=== PATIENT | male | born 1985 | race Caucasian/White ===

== ENCOUNTER 2016-06-27 05:08 | Emergency (ER) | payer SELFPAY ==
[~2016-06-27] VITALS: Ht 177.8 cm; Wt 136.1 kg
--- NOTE | 2016-06-27 05:08 | NUR ---
Patient to [facility] for evaluation. Side rails up.
[2016-06-27 05:10] VITALS: BP_SYST 129
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
[2016-06-27] MEDS ORDERED: LISI-600 PO (05:26)
[2016-06-27] MEDS ORDERED: WARF4TAB2 PO (05:26)
--- NOTE | 2016-06-27 05:30 | NUR ---
ER at bedside examining patient.
[2016-06-27 06:20] LABS: INR 2.7 (0.80-1.20)
[2016-06-27 06:23] LABS: PROTHROMBIN TIME 30.7 SECS (9.5-12.5)
--- NOTE | 2016-06-27 06:55 | NUR ---
Medication given as per MD Orders.
[2016-06-27] MEDS ORDERED: LISINOPRIL 10 MG TABLET (PRINIVIL) PO ONE (07:00)
--- NOTE | 2016-06-27 07:30 | NUR ---
Pt CT (-) per Radiologist.
[2016-06-27 07:32] VITALS: BP_SYST 148
--- NOTE | 2016-06-27 07:32 | NUR ---
Patient and Harmony given written and verbal discharge instructions and verbalizes understanding. ER MD discussed with patient the results and treatment provided. Given copies of tests performed in ER. Patient in stable condition. ID arm band removed. Patient educated on pain management and to follow up with PMD. Pain Scale 0. Opportunity for questions provided and answered.
== END 2016-06-27 07:32 ==
LOC: SED 05:08
DX: S00.83XA Contusion of other part of head, initial encounter (principal); X58.XXXA Exposure to other specified factors, initial encounter; Y93.89 Activity, other specified; Y99.8 Other external cause status; Y92.89 Other specified places as the place of occurrence of the external cause
CPT/HCPCS: 36415; 70450-TC; 85610-TC; 99285